=== PATIENT | male | born 1935 | race Caucasian/White ===

== ENCOUNTER 2020-01-19 12:54 | Inpatient (IN) ==
[2020-01-19 13:51] LABS: Basophils % 0.3 %; Eosinophils # 0.2 K/mcL (0.0-0.6); Eosinophils % 3.1 %; Hematocrit 29.8 % (37.5-50.1); Immature Granulocytes % 0.3 % (0-4); Lymphocytes # 0.6 K/mcL (0.6-4.6); Lymphocytes % 9.1 %; Mean Corpuscular HGB Conc 30.2 g/dL (31.6-35.5); Mean Corpuscular Hemoglobin 29.1 pg (28.0-33.3); Mean Corpuscular Volume 96.4 fL (83.0-100.0); Mean Platelet Volume 10.3 fL (9.4-12.4); Monocytes # 0.1 K/mcL (0.0-1.3); Monocytes % 1.8 %; Neutrophils # 5.2 K/mcL (1.6-8.9); Platelet Count 236 K/mcL (140-400); Red Blood Count 3.09 M/mcL (4.19-5.50); Segmented Neutrophils % 85.4 %; White Blood Count 6.1 K/mcL (4.3-11.1)
[2020-01-19 13:54] LABS: Bilirubin,Urine Negative (Negative); Blood,Urine Negative (Negative); Clarity,Urine Clear (Clear); Color,Urine Yellow (Yellow); Glucose,Urine (UA) Normal (Normal); Ketones,Urine Negative (Negative); Leukocyte Esterase,Urine Small (Negative); Nitrite,Urine Negative (Negative); Protein,Urine Trace mg/dL (Neg-Trace); Specific Gravity,Urine 1.018 (1.010-1.025); Urobilinogen,Urine Normal (Normal)
[2020-01-19 13:57] LABS: Bacteria,Urine None Seen per hpf (None-Few); Hyaline Casts,Urine None Seen per lpf (None-Few); RBC,Urine 0-3 per hpf (0-3); Squamous Epithelial Cell,Urine Many per lpf (None-Few)
[2020-01-19 13:58] LABS: INR 1.4; Prothrombin Time 15.7 Seconds (9.4-12.1)
[2020-01-19 14:01] LABS: Activated Partial Thrombo Time 28.3 Seconds (26.0-36.0)
[2020-01-19 15:26] LABS: Alanine Aminotransferase 40 Units/L (7-52); Albumin 3.2 g/dL (3.5-5.7); Albumin/Globulin Ratio 0.9 (1.1-2.2); Alkaline Phosphatase 85 Units/L (34-104); Aspartate Amino Transferase 39 Units/L (13-39); BUN/Creatinine Ratio 17 (6-26); Bilirubin,Direct 0.2 mg/dL (0.0-0.2); Bilirubin,Indirect 0.4 mg/dL (0.0-1.0); Bilirubin,Total 0.6 mg/dL (0.3-1.0); Blood Urea Nitrogen 24 mg/dL (8-23); Calcium 8.8 mg/dL (8.6-10.3); Carbon Dioxide 31 mEq/L (23-29); Chloride 105 mEq/L (98-107); Globulin 3.7 g/dL (2.4-3.5); Glucose 112 mg/dL (70-105); Lipase 36 Units/L (11-82); Osmolality,Calculated 295 (280-300); Potassium 4.2 mEq/L (3.5-5.1); Sodium 140 mEq/L (136-145); Total Protein 6.9 g/dL (6.4-8.9); Troponin I < 0.03 ng/mL (< 0.04); eGFR For African Americans 59 (> 60); eGFR For Non-African Americans 49 (> 60)
[2020-01-19] MEDS ORDERED: Isovue-370 500 ML BOTTLE IVP ONE (15:35)
[2020-01-19] MEDS ORDERED: Isovue-370 500 ML BOTTLE PO ONE (18:00)
[2020-01-19] MEDS ORDERED: Morphine Sulfate 2 MG/ML SYRINGE IVP ONE (18:46)
[2020-01-19] MEDS ORDERED: levoFLOXacin 750 MG/150 ML 750 MG/150 ML BAG IVPB SCH ×2 (19:30→20:00)
[2020-01-19] MEDS ORDERED: Ondansetron 4 MG/2 ML VIAL IVP PRN (19:48)
[2020-01-19] MEDS ORDERED: Naloxone 0.4 MG/ML INJ IVP PRN (19:49)
[2020-01-19] MEDS ORDERED: Ringers Solution, Lactated 1,000 ML IVC SCH (20:00)
[2020-01-19] MEDS: D5% in 0.45% NACL w KCl 20 MEQ/1,000 ML MLS IVC SCH (21:42)
[2020-01-19] MEDS: cilostazoL 100 MG TABLET PO SCH (21:45)
[2020-01-19] MEDS: Baclofen 10 MG TABLET PO SCH (21:45)
[2020-01-19] MEDS: Pregabalin 25 MG CAPSULE PO SCH (21:45)
[2020-01-19] MEDS: MetroNIDAZOLE 500 MG/100 ML 500 MG/100 ML BAG IVPB SCH (23:46)
[2020-01-20 05:14] LABS: Basophils % 0.4 %; Eosinophils # 0.2 K/mcL (0.0-0.6); Eosinophils % 3.6 %; Hematocrit 26.7 % (37.5-50.1); Hemoglobin 8.1 g/dL (12.9-16.9); Immature Granulocytes % 0.4 % (0-4); Lymphocytes # 0.7 K/mcL (0.6-4.6); Lymphocytes % 14.9 %; Mean Corpuscular HGB Conc 30.3 g/dL (31.6-35.5); Mean Corpuscular Volume 95.7 fL (83.0-100.0); Mean Platelet Volume 9.6 fL (9.4-12.4); Monocytes # 0.2 K/mcL (0.0-1.3); Neutrophils # 3.8 K/mcL (1.6-8.9); Platelet Count 208 K/mcL (140-400); Red Blood Count 2.79 M/mcL (4.19-5.50); Red Cell Distribution Width 18.7 % (11.5-14.5); Segmented Neutrophils % 76.7 %
[2020-01-20 05:21] LABS: INR 1.5; Prothrombin Time 16.7 Seconds (9.4-12.1)
[2020-01-20 05:36] LABS: BUN/Creatinine Ratio 16 (6-26); Blood Urea Nitrogen 20 mg/dL (8-23); Calcium 8.5 mg/dL (8.6-10.3); Carbon Dioxide 30 mEq/L (23-29); Chloride 102 mEq/L (98-107); Glucose 108 mg/dL (70-105); Magnesium 1.9 mg/dL (1.6-2.6); Osmolality,Calculated 285 (280-300); Potassium 4.1 mEq/L (3.5-5.1); Sodium 136 mEq/L (136-145); eGFR For African Americans > 60 (> 60); eGFR For Non-African Americans 55 (> 60)
[2020-01-20] MEDS: D5% in 0.45% NACL w KCl 20 MEQ/1,000 ML MLS IVC SCH (07:23)
[2020-01-20] MEDS: cilostazoL 100 MG TABLET PO SCH ×2 (08:12→20:14)
[2020-01-20] MEDS: Pregabalin 25 MG CAPSULE PO SCH ×2 (08:12→20:14)
[2020-01-20] MEDS: MetroNIDAZOLE 500 MG/100 ML 500 MG/100 ML BAG IVPB SCH ×2 (08:18→23:39)
[2020-01-20] MEDS: Baclofen 10 MG TABLET PO SCH ×2 (08:20→20:14)
[2020-01-20] MEDS ORDERED: lisinopriL 5 MG TABLET PO SCH (09:00)
[2020-01-20] MEDS ORDERED: DilTIAZem CD (24hr) 240 MG CAP.ER.24H PO SCH (09:00)
[2020-01-20] MEDS ORDERED: Bupivacaine/EPI 1:200k 0.5%PF 30 ML VIAL ONE (12:10)
[2020-01-20] MEDS ORDERED: *HR* Labetalol 20 MG/4 ML SYRINGE IVP PRN (13:37)
[2020-01-20] MEDS ORDERED: *HR* Promethazine 25 MG/ML VIAL IVP PRN (13:37)
[2020-01-20] MEDS ORDERED: Ondansetron 4 MG/2 ML VIAL IVP PRN ×2 (13:37→18:05)
[2020-01-20] MEDS ORDERED: Albumin Human 5% 12.5 GM/250 ML IV.SOLN ONE (13:55)
[2020-01-20] MEDS ORDERED: *HR* Propofol 200 MG/20 ML VIAL IVP ONE (14:18)
[2020-01-20] MEDS ORDERED: Dexamethasone 4 MG/ML VIAL ONE (14:18)
[2020-01-20] MEDS ORDERED: *HR* Rocuronium Bromide 50 MG/5 ML VIAL ONE (14:18)
[2020-01-20] MEDS ORDERED: Heparin 1,000 UNITS/500 mL 500 ML ONE (14:18)
[2020-01-20] MEDS ORDERED: Lidocaine -MPF 2% 2 ML VIAL ONE ×2 (14:18)
[2020-01-20] MEDS ORDERED: *HR* FentaNYL (PF) 100 MCG/2 ML VIAL ONE (14:18)
[2020-01-20] MEDS ORDERED: Ondansetron 4 MG/2 ML VIAL ONE (14:18)
[2020-01-20] MEDS ORDERED: *HR* Midazolam HCl 2 MG/2 ML VIAL ONE (14:18)
[2020-01-20] MEDS: *HR* HYDROmorphone (PF) 1 MG/ML SYRINGE IVP PRN ×8 (15:52→16:44)
[2020-01-20] MEDS ORDERED: Acetaminophen IV 1,000 MG/100 ML INFUS..BTL IVPB ONE (16:29)
[2020-01-20] MEDS ORDERED: Naloxone 0.4 MG/ML INJ IVP PRN (18:05)
[2020-01-20] MEDS: Acetaminophen IV 1,000 MG/100 ML INFUS..BTL IVPB SCH (23:39)
[2020-01-21 03:06] LABS: Basophils % 0.1 %; Hematocrit 30.3 % (37.5-50.1); Immature Granulocytes % 0.3 % (0-4); Lymphocytes # 0.5 K/mcL (0.6-4.6); Lymphocytes % 6.2 %; Mean Corpuscular HGB Conc 29.7 g/dL (31.6-35.5); Mean Corpuscular Hemoglobin 28.8 pg (28.0-33.3); Mean Corpuscular Volume 97.1 fL (83.0-100.0); Mean Platelet Volume 9.4 fL (9.4-12.4); Monocytes # 0.2 K/mcL (0.0-1.3); Monocytes % 2.5 %; Platelet Count 187 K/mcL (140-400); Red Blood Count 3.12 M/mcL (4.19-5.50); Red Cell Distribution Width 18.8 % (11.5-14.5); Segmented Neutrophils % 90.9 %
[2020-01-21 03:07] LABS: White Blood Count 7.7 K/mcL (4.3-11.1)
[2020-01-21 03:25] LABS: BUN/Creatinine Ratio 15 (6-26); Blood Urea Nitrogen 18 mg/dL (8-23); Calcium 8.4 mg/dL (8.6-10.3); Carbon Dioxide 27 mEq/L (23-29); Chloride 103 mEq/L (98-107); Glucose 139 mg/dL (70-105); Osmolality,Calculated 286 (280-300); Potassium 4.8 mEq/L (3.5-5.1); Sodium 136 mEq/L (136-145); eGFR For African Americans > 60 (> 60); eGFR For Non-African Americans 59 (> 60)
[2020-01-21] MEDS: Acetaminophen IV 1,000 MG/100 ML INFUS..BTL IVPB SCH ×2 (05:22→12:00)
[2020-01-21] MEDS: MetroNIDAZOLE 500 MG/100 ML 500 MG/100 ML BAG IVPB SCH ×2 (07:42→15:22)
[2020-01-21] MEDS: DilTIAZem CD (24hr) 240 MG CAP.ER.24H PO SCH (07:43)
[2020-01-21] MEDS: cilostazoL 100 MG TABLET PO SCH ×2 (07:43→20:36)
[2020-01-21] MEDS: Baclofen 10 MG TABLET PO SCH ×2 (07:43→20:35)
[2020-01-21] MEDS: Pregabalin 25 MG CAPSULE PO SCH ×2 (07:43→20:35)
[2020-01-21] MEDS: lisinopriL 5 MG TABLET PO SCH (07:44)
[2020-01-21] MEDS: Aspirin Enteric Coated 81 MG Tablet PO SCH (12:37)
[2020-01-21] MEDS ORDERED: levoFLOXacin 750 MG/150 ML 750 MG/150 ML BAG IVPB SCH (20:00)
[2020-01-21] MEDS: Apixaban 2.5 MG TABLET PO SCH (20:35)
[2020-01-21] MEDS: Furosemide 40 MG TABLET PO SCH (20:35)
[2020-01-22] MEDS: MetroNIDAZOLE 500 MG/100 ML 500 MG/100 ML BAG IVPB SCH (00:08)
[2020-01-22] MEDS: Methyl Salicylate/Menthol 57 APPL/57 GM TUBE TP PRN ×2 (05:45→17:21)
[2020-01-22] MEDS: lisinopriL 5 MG TABLET PO SCH (08:07)
[2020-01-22] MEDS: Aspirin Enteric Coated 81 MG Tablet PO SCH (08:10)
[2020-01-22] MEDS: DilTIAZem CD (24hr) 240 MG CAP.ER.24H PO SCH (08:10)
[2020-01-22] MEDS: Furosemide 40 MG TABLET PO SCH ×2 (08:11→21:31)
[2020-01-22] MEDS: Apixaban 2.5 MG TABLET PO SCH ×2 (08:12→21:32)
[2020-01-22] MEDS: Baclofen 10 MG TABLET PO SCH ×2 (08:14→21:31)
[2020-01-22] MEDS: cilostazoL 100 MG TABLET PO SCH ×2 (08:14→21:32)
[2020-01-22] MEDS: Pregabalin 25 MG CAPSULE PO SCH ×2 (08:17→21:31)
[2020-01-22] MEDS: metroNIDAZOLE 500 MG TABLET PO SCH ×3 (08:22→17:20)
[2020-01-22] MEDS ORDERED: Ringers Solution, Lactated 1,000 ML IVC SCH (10:45)
[2020-01-23 04:08] LABS: Basophils % 0.4 %; Eosinophils # 0.1 K/mcL (0.0-0.6); Eosinophils % 2.9 %; Hematocrit 32.2 % (37.5-50.1); Hemoglobin 9.5 g/dL (12.9-16.9); Immature Granulocytes % 0.4 % (0-4); Lymphocytes # 0.8 K/mcL (0.6-4.6); Lymphocytes % 17.6 %; Mean Corpuscular HGB Conc 29.5 g/dL (31.6-35.5); Mean Corpuscular Hemoglobin 28.4 pg (28.0-33.3); Mean Corpuscular Volume 96.1 fL (83.0-100.0); Mean Platelet Volume 9.8 fL (9.4-12.4); Monocytes # 0.5 K/mcL (0.0-1.3); Monocytes % 11.3 %; Neutrophils # 3.2 K/mcL (1.6-8.9); Platelet Count 196 K/mcL (140-400); Red Blood Count 3.35 M/mcL (4.19-5.50); Red Cell Distribution Width 19.8 % (11.5-14.5); Segmented Neutrophils % 67.4 %; White Blood Count 4.8 K/mcL (4.3-11.1)
[2020-01-23] MEDS: cilostazoL 100 MG TABLET PO SCH ×2 (08:18→22:20)
[2020-01-23] MEDS: DilTIAZem CD (24hr) 240 MG CAP.ER.24H PO SCH (08:18)
[2020-01-23] MEDS: Baclofen 10 MG TABLET PO SCH ×2 (08:19→22:20)
[2020-01-23] MEDS: lisinopriL 5 MG TABLET PO SCH (08:20)
[2020-01-23] MEDS: metroNIDAZOLE 500 MG TABLET PO SCH ×3 (08:22→17:27)
[2020-01-23] MEDS: Pregabalin 25 MG CAPSULE PO SCH ×2 (08:23→22:20)
[2020-01-23] MEDS: Aspirin Enteric Coated 81 MG Tablet PO SCH (08:24)
[2020-01-23] MEDS: Furosemide 40 MG TABLET PO SCH ×2 (08:24→22:19)
[2020-01-23] MEDS: Apixaban 2.5 MG TABLET PO SCH ×2 (08:25→22:19)
[2020-01-23] MEDS: levoFLOXacin 750 MG TABLET PO SCH (22:18)
[2020-01-24] MEDS ORDERED: Metoclopramide 20 MG in 0.9 % Sodium Chloride 50 ML IVPB SCH (09:00)
[2020-01-24] MEDS: Baclofen 10 MG TABLET PO SCH ×2 (09:08→20:00)
[2020-01-24] MEDS: DilTIAZem CD (24hr) 240 MG CAP.ER.24H PO SCH (09:08)
[2020-01-24] MEDS: metroNIDAZOLE 500 MG TABLET PO SCH ×3 (09:08→16:49)
[2020-01-24] MEDS: Metoclopramide 20 MG in 0.9 % Sodium Chloride 50 ML IVPB SCH ×2 (09:08→16:49)
[2020-01-24] MEDS: Pregabalin 25 MG CAPSULE PO SCH ×2 (09:08→20:00)
[2020-01-24] MEDS: Aspirin Enteric Coated 81 MG Tablet PO SCH (09:08)
[2020-01-24] MEDS: Apixaban 2.5 MG TABLET PO SCH ×2 (09:09→20:00)
[2020-01-24] MEDS: cilostazoL 100 MG TABLET PO SCH ×2 (09:09→20:00)
[2020-01-24] MEDS: lisinopriL 5 MG TABLET PO SCH (09:09)
[2020-01-25] MEDS: Metoclopramide 20 MG in 0.9 % Sodium Chloride 50 ML IVPB SCH ×2 (00:46→11:28)
[2020-01-25 05:10] LABS: Basophils % 0.4 %; Eosinophils # 0.1 K/mcL (0.0-0.6); Eosinophils % 1.6 %; Hematocrit 29.8 % (37.5-50.1); Hemoglobin 9.1 g/dL (12.9-16.9); Immature Granulocytes % 0.2 % (0-4); Lymphocytes # 0.9 K/mcL (0.6-4.6); Lymphocytes % 11.3 %; Mean Corpuscular HGB Conc 30.5 g/dL (31.6-35.5); Mean Corpuscular Volume 94.9 fL (83.0-100.0); Mean Platelet Volume 9.7 fL (9.4-12.4); Monocytes # 0.7 K/mcL (0.0-1.3); Monocytes % 8.7 %; Neutrophils # 6.4 K/mcL (1.6-8.9); Platelet Count 225 K/mcL (140-400); Red Blood Count 3.14 M/mcL (4.19-5.50); Red Cell Distribution Width 20.1 % (11.5-14.5); Segmented Neutrophils % 77.8 %
[2020-01-25 05:17] LABS: White Blood Count 8.2 K/mcL (4.3-11.1)
[2020-01-25 05:30] LABS: BUN/Creatinine Ratio 18 (6-26); Blood Urea Nitrogen 22 mg/dL (8-23); Calcium 8.8 mg/dL (8.6-10.3); Carbon Dioxide 28 mEq/L (23-29); Chloride 100 mEq/L (98-107); Glucose 92 mg/dL (70-105); Magnesium 1.7 mg/dL (1.6-2.6); Osmolality,Calculated 285 (280-300); Potassium 3.3 mEq/L (3.5-5.1); Sodium 136 mEq/L (136-145); eGFR For African Americans > 60 (> 60); eGFR For Non-African Americans 57 (> 60)
[2020-01-25] MEDS ORDERED: Methylnaltrexone 12 MG/0.6 ML SYRINGE SQ ONE (07:53)
[2020-01-25] MEDS: DilTIAZem CD (24hr) 240 MG CAP.ER.24H PO SCH (09:32)
[2020-01-25] MEDS: Apixaban 2.5 MG TABLET PO SCH ×2 (09:33→21:11)
[2020-01-25] MEDS: Aspirin Enteric Coated 81 MG Tablet PO SCH (09:34)
[2020-01-25] MEDS: metroNIDAZOLE 500 MG TABLET PO SCH ×3 (09:35→15:12)
[2020-01-25] MEDS: Pregabalin 25 MG CAPSULE PO SCH ×2 (09:35→21:11)
[2020-01-25] MEDS: cilostazoL 100 MG TABLET PO SCH ×2 (09:36→21:12)
[2020-01-25] MEDS: Baclofen 10 MG TABLET PO SCH ×2 (09:36→21:11)
[2020-01-25] MEDS: lisinopriL 5 MG TABLET PO SCH (09:36)
[2020-01-25] MEDS: levoFLOXacin 750 MG TABLET PO SCH (21:11)
[2020-01-26 04:36] LABS: Basophils % 0.4 %; Eosinophils # 0.3 K/mcL (0.0-0.6); Eosinophils % 3.3 %; Hematocrit 29.9 % (37.5-50.1); Hemoglobin 8.9 g/dL (12.9-16.9); Immature Granulocytes % 0.4 % (0-4); Lymphocytes # 1.1 K/mcL (0.6-4.6); Lymphocytes % 13.9 %; Mean Corpuscular HGB Conc 29.8 g/dL (31.6-35.5); Mean Corpuscular Hemoglobin 28.4 pg (28.0-33.3); Mean Corpuscular Volume 95.5 fL (83.0-100.0); Mean Platelet Volume 9.9 fL (9.4-12.4); Monocytes # 0.9 K/mcL (0.0-1.3); Monocytes % 11.8 %; Neutrophils # 5.3 K/mcL (1.6-8.9); Platelet Count 242 K/mcL (140-400); Red Blood Count 3.13 M/mcL (4.19-5.50); Red Cell Distribution Width 20.4 % (11.5-14.5); Segmented Neutrophils % 70.2 %; White Blood Count 7.6 K/mcL (4.3-11.1)
[2020-01-26 04:56] LABS: Calcium 8.1 mg/dL (8.6-10.3); Potassium 3.5 mEq/L (3.5-5.1)
[2020-01-26] MEDS ORDERED: 0.9 % Sodium Chloride 1,000 ML IVC SCH (07:45)
[2020-01-26] MEDS: polyethylene glycoL 3350 17 GM POWD.PACK PO SCH (08:42)
[2020-01-26] MEDS: Apixaban 2.5 MG TABLET PO SCH ×2 (08:43→20:24)
[2020-01-26] MEDS: DilTIAZem CD (24hr) 240 MG CAP.ER.24H PO SCH (08:45)
[2020-01-26] MEDS: Baclofen 10 MG TABLET PO SCH ×2 (08:45→20:24)
[2020-01-26] MEDS: cilostazoL 100 MG TABLET PO SCH ×2 (08:46→20:24)
[2020-01-26] MEDS: Pregabalin 25 MG CAPSULE PO SCH ×2 (08:46→20:24)
[2020-01-26] MEDS: Aspirin Enteric Coated 81 MG Tablet PO SCH (08:47)
[2020-01-26] MEDS ORDERED: 0.9 % Sodium Chloride 500 ML IVC ONE (11:47)
[2020-01-27 01:31] LABS: Basophils % 0.4 %; Eosinophils # 0.4 K/mcL (0.0-0.6); Eosinophils % 4.4 %; Hematocrit 27.8 % (37.5-50.1); Hemoglobin 8.5 g/dL (12.9-16.9); Immature Granulocytes % 0.1 % (0-4); Lymphocytes # 1.2 K/mcL (0.6-4.6); Lymphocytes % 14.4 %; Mean Corpuscular HGB Conc 30.6 g/dL (31.6-35.5); Mean Corpuscular Hemoglobin 29.5 pg (28.0-33.3); Mean Corpuscular Volume 96.5 fL (83.0-100.0); Mean Platelet Volume 9.8 fL (9.4-12.4); Monocytes # 0.8 K/mcL (0.0-1.3); Monocytes % 10.5 %; Neutrophils # 5.6 K/mcL (1.6-8.9); Platelet Count 223 K/mcL (140-400); Red Blood Count 2.88 M/mcL (4.19-5.50); Segmented Neutrophils % 70.2 %
[2020-01-27 01:48] LABS: Calcium 7.5 mg/dL (8.6-10.3); Magnesium 1.6 mg/dL (1.6-2.6); Potassium 3.5 mEq/L (3.5-5.1)
[2020-01-27] MEDS ORDERED: *HR* Metoprolol 5 MG/5 ML VIAL IVP PRN (07:32)
[2020-01-27] MEDS: polyethylene glycoL 3350 17 GM POWD.PACK PO SCH (09:31)
[2020-01-27] MEDS: Aspirin Enteric Coated 81 MG Tablet PO SCH (09:32)
[2020-01-27] MEDS: Pregabalin 25 MG CAPSULE PO SCH ×2 (09:32→20:10)
[2020-01-27] MEDS: Baclofen 10 MG TABLET PO SCH ×2 (09:33→20:10)
[2020-01-27] MEDS: cilostazoL 100 MG TABLET PO SCH ×2 (09:33→20:09)
[2020-01-27] MEDS: Apixaban 2.5 MG TABLET PO SCH ×2 (09:33→20:14)
[2020-01-27] MEDS: 0.9 % Sodium Chloride 1,000 ML IVC SCH (09:34)
[2020-01-28] MEDS: 0.9 % Sodium Chloride 1,000 ML IVC SCH (00:30)
[2020-01-28 02:39] LABS: Hematocrit 29.6 % (37.5-50.1); Mean Corpuscular HGB Conc 30.4 g/dL (31.6-35.5); Mean Corpuscular Hemoglobin 28.9 pg (28.0-33.3); Mean Corpuscular Volume 95.2 fL (83.0-100.0); Mean Platelet Volume 9.7 fL (9.4-12.4); Platelet Count 222 K/mcL (140-400); Red Blood Count 3.11 M/mcL (4.19-5.50); White Blood Count 7.8 K/mcL (4.3-11.1)
[2020-01-28 02:46] LABS: Calcium 7.7 mg/dL (8.6-10.3); Magnesium 1.7 mg/dL (1.6-2.6); Phosphorous 2.3 mg/dL (2.7-4.5); Potassium 3.5 mEq/L (3.5-5.1); Uric Acid 9.7 mg/dL (2.3-7.6)
[2020-01-28] MEDS: Pregabalin 25 MG CAPSULE PO SCH (09:28)
[2020-01-28] MEDS: Apixaban 2.5 MG TABLET PO SCH (09:29)
[2020-01-28] MEDS: Baclofen 10 MG TABLET PO SCH (09:29)
[2020-01-28] MEDS: polyethylene glycoL 3350 17 GM POWD.PACK PO SCH (09:29)
[2020-01-28] MEDS: cilostazoL 100 MG TABLET PO SCH (09:29)
[2020-01-28] MEDS: Aspirin Enteric Coated 81 MG Tablet PO SCH (09:29)
[2020-01-28 10:54] VITALS: BP 131/75
[2020-01-28 12:45] LABS: BUN/Creatinine Ratio 22 (6-26); Blood Urea Nitrogen 30 mg/dL (8-23); Calcium 7.7 mg/dL (8.6-10.3); Carbon Dioxide 27 mEq/L (23-29); Chloride 109 mEq/L (98-107); Glucose 104 mg/dL (70-105); Osmolality,Calculated 294 (280-300); Potassium 3.4 mEq/L (3.5-5.1); Sodium 139 mEq/L (136-145); eGFR For African Americans > 60 (> 60); eGFR For Non-African Americans 50 (> 60)
== END 2020-01-28 12:57 | disposition home health service (06) | DRG 341 ==
LOC: 3ANU 12:54 → EMEROOARM 12:54 → SUATTDRO 19:46 → 3ANU 20:37 → SUATTDRO 01-20 12:59
PROVIDERS: ADMIT Family Medicine; ATTEND Internal Medicine

== ENCOUNTER 2020-10-23 19:27 | Inpatient (IN) ==
[2020-10-23] MEDS ORDERED: Naloxone 0.4 MG/ML INJ IVP PRN (21:15)
[2020-10-23] MEDS ORDERED: Perflutren Lipid Microsphere 1.3 ML in 0.9 % Sodium Chloride 8.7 ML IVP PRN (21:47)
[2020-10-24] MEDS ORDERED: Acetaminophen 325 MG TABLET PO ONE (06:44)
[2020-10-24 08:17] LABS: Basophils % 0.6 %; Eosinophils # 0.1 K/mcL (0.0-0.6); Eosinophils % 1.3 %; Hematocrit 32.5 % (37.5-50.1); Immature Granulocytes % 0.5 % (0-4); Lymphocytes # 0.5 K/mcL (0.6-4.6); Lymphocytes % 7.5 %; Mean Corpuscular HGB Conc 30.8 g/dL (31.6-35.5); Mean Corpuscular Hemoglobin 31.2 pg (28.0-33.3); Mean Corpuscular Volume 101.2 fL (83.0-100.0); Mean Platelet Volume 10.1 fL (9.4-12.4); Monocytes # 0.4 K/mcL (0.0-1.3); Monocytes % 5.7 %; Neutrophils # 5.2 K/mcL (1.6-8.9); Platelet Count 165 K/mcL (140-400); Red Blood Count 3.21 M/mcL (4.19-5.50); Red Cell Distribution Width 16.6 % (11.5-14.5); Segmented Neutrophils % 84.4 %; White Blood Count 6.2 K/mcL (4.3-11.1)
[2020-10-24 08:37] LABS: BUN/Creatinine Ratio 18 (6-26); Blood Urea Nitrogen 20 mg/dL (8-23); Calcium 8.9 mg/dL (8.6-10.3); Carbon Dioxide 30 mEq/L (23-29); Chloride 102 mEq/L (98-107); Glucose 99 mg/dL (70-105); Osmolality,Calculated 291 (280-300); Potassium 3.6 mEq/L (3.5-5.1); Sodium 139 mEq/L (136-145); eGFR For African Americans > 60 (> 60); eGFR For Non-African Americans > 60 (> 60)
[2020-10-24] MEDS ORDERED: Furosemide 40 MG/4 ML VIAL IVP SCH (09:00)
[2020-10-24] MEDS: *HR* HYDROcodone/Acet 5/325 mg TABLET PO PRN ×2 (11:29→20:08)
[2020-10-24] MEDS: Multivit/Ca/Min/Fe/FA 1 TAB TABLET PO SCH (17:02)
[2020-10-24] MEDS: Furosemide 40 MG/4 ML VIAL IVP SCH (20:06)
[2020-10-24] MEDS: cilostazoL 100 MG TABLET PO SCH (20:07)
[2020-10-24] MEDS: Baclofen 10 MG TABLET PO SCH (20:08)
[2020-10-24] MEDS: Apixaban 2.5 MG TABLET PO SCH (20:08)
[2020-10-24] MEDS: Pregabalin 25 MG CAPSULE PO SCH (20:09)
[2020-10-25] MEDS: Furosemide 40 MG/4 ML VIAL IVP SCH ×2 (08:01→20:08)
[2020-10-25] MEDS: Folic Acid 1 MG TABLET PO SCH (08:02)
[2020-10-25] MEDS: *HR* HYDROcodone/Acet 5/325 mg TABLET PO PRN ×2 (08:02→20:09)
[2020-10-25] MEDS: lisinopriL 5 MG TABLET PO SCH (08:02)
[2020-10-25] MEDS: cilostazoL 100 MG TABLET PO SCH ×2 (08:02→20:09)
[2020-10-25] MEDS: Baclofen 10 MG TABLET PO SCH ×2 (08:02→20:09)
[2020-10-25] MEDS: Aspirin Enteric Coated 81 MG Tablet PO SCH (08:02)
[2020-10-25] MEDS: Apixaban 2.5 MG TABLET PO SCH ×2 (08:02→20:09)
[2020-10-25] MEDS: DilTIAZem CD (24hr) 240 MG CAP.ER.24H PO SCH (08:02)
[2020-10-25] MEDS: Pregabalin 25 MG CAPSULE PO SCH ×2 (08:03→20:09)
[2020-10-25 08:54] LABS: Basophils % 0.4 %; Eosinophils # 0.1 K/mcL (0.0-0.6); Eosinophils % 1.4 %; Hematocrit 33.4 % (37.5-50.1); Hemoglobin 10.3 g/dL (12.9-16.9); Immature Granulocytes % 0.4 % (0-4); Lymphocytes # 0.6 K/mcL (0.6-4.6); Mean Corpuscular HGB Conc 30.8 g/dL (31.6-35.5); Mean Corpuscular Hemoglobin 30.9 pg (28.0-33.3); Mean Corpuscular Volume 100.3 fL (83.0-100.0); Mean Platelet Volume 9.6 fL (9.4-12.4); Monocytes # 0.4 K/mcL (0.0-1.3); Monocytes % 4.8 %; Platelet Count 179 K/mcL (140-400); Red Blood Count 3.33 M/mcL (4.19-5.50); Red Cell Distribution Width 16.3 % (11.5-14.5); White Blood Count 8.1 K/mcL (4.3-11.1)
[2020-10-25 09:16] LABS: Blood Urea Nitrogen > 130 mg/dL (8-23); Calcium 8.9 mg/dL (8.6-10.3); Carbon Dioxide 31 mEq/L (23-29); Chloride 99 mEq/L (98-107); Glucose 95 mg/dL (70-105); Magnesium 1.8 mg/dL (1.6-2.6); Potassium 3.8 mEq/L (3.5-5.1); Sodium 138 mEq/L (136-145); eGFR For African Americans > 60 (> 60); eGFR For Non-African Americans > 60 (> 60)
[2020-10-25] MEDS: Multivit/Ca/Min/Fe/FA 1 TAB TABLET PO SCH (17:21)
[2020-10-26 05:40] LABS: Basophils % 0.4 %; Eosinophils # 0.2 K/mcL (0.0-0.6); Eosinophils % 2.8 %; Hematocrit 31.3 % (37.5-50.1); Hemoglobin 9.6 g/dL (12.9-16.9); Immature Granulocytes % 0.4 % (0-4); Lymphocytes # 0.6 K/mcL (0.6-4.6); Lymphocytes % 7.6 %; Mean Corpuscular HGB Conc 30.7 g/dL (31.6-35.5); Mean Corpuscular Hemoglobin 30.7 pg (28.0-33.3); Mean Platelet Volume 9.9 fL (9.4-12.4); Monocytes # 0.5 K/mcL (0.0-1.3); Monocytes % 6.9 %; Neutrophils # 6.1 K/mcL (1.6-8.9); Platelet Count 190 K/mcL (140-400); Red Blood Count 3.13 M/mcL (4.19-5.50); Red Cell Distribution Width 16.5 % (11.5-14.5); Segmented Neutrophils % 81.9 %; White Blood Count 7.4 K/mcL (4.3-11.1)
[2020-10-26 05:57] LABS: BUN/Creatinine Ratio 21 (6-26); Blood Urea Nitrogen 23 mg/dL (8-23); Calcium 8.5 mg/dL (8.6-10.3); Carbon Dioxide 33 mEq/L (23-29); Chloride 100 mEq/L (98-107); Glucose 104 mg/dL (70-105); Magnesium 1.8 mg/dL (1.6-2.6); Osmolality,Calculated 290 (280-300); Potassium 3.6 mEq/L (3.5-5.1); Sodium 138 mEq/L (136-145); eGFR For African Americans > 60 (> 60); eGFR For Non-African Americans > 60 (> 60)
[2020-10-26] MEDS: DilTIAZem CD (24hr) 240 MG CAP.ER.24H PO SCH (07:59)
[2020-10-26] MEDS: cilostazoL 100 MG TABLET PO SCH (07:59)
[2020-10-26] MEDS: Furosemide 40 MG/4 ML VIAL IVP SCH (08:00)
[2020-10-26] MEDS: Baclofen 10 MG TABLET PO SCH (08:00)
[2020-10-26] MEDS: lisinopriL 5 MG TABLET PO SCH (08:00)
[2020-10-26] MEDS: Aspirin Enteric Coated 81 MG Tablet PO SCH (08:00)
[2020-10-26] MEDS: Apixaban 2.5 MG TABLET PO SCH (08:00)
[2020-10-26] MEDS: Folic Acid 1 MG TABLET PO SCH (08:00)
[2020-10-26] MEDS: Pregabalin 25 MG CAPSULE PO SCH (08:00)
[2020-10-26 08:13] VITALS: BP 154/72
== END 2020-10-26 11:29 | disposition home or self-care (01) | DRG 291 ==
LOC: 3ANU 19:27 → EMEROOARM 19:27 → SUATTDRO 21:11 → 3ANU 21:41
PROVIDERS: ADMIT Internal Medicine; ATTEND Internal Medicine

== ENCOUNTER 2021-01-30 16:09 | Inpatient (IN) ==
[2021-01-30] MEDS ORDERED: Ondansetron 4 MG/2 ML VIAL IVP PRN (18:57)
[2021-01-30] MEDS ORDERED: Acetaminophen 325 MG TABLET PO PRN (18:57)
[2021-01-30] MEDS ORDERED: Melatonin 3 MG TABLET PO PRN (18:57)
[2021-01-30] MEDS ORDERED: Naloxone 0.4 MG/ML INJ IVP PRN (18:57)
[2021-01-30] MEDS: Furosemide 40 MG/4 ML VIAL IVP SCH (20:32)
[2021-01-31 03:39] LABS: Basophils % 0.4 %; Eosinophils % 0.7 %; Hematocrit 29.2 % (37.5-50.1); Hemoglobin 8.7 g/dL (12.9-16.9); Immature Granulocytes % 0.2 % (0-4); Lymphocytes # 0.3 K/mcL (0.6-4.6); Lymphocytes % 5.2 %; Mean Corpuscular HGB Conc 29.8 g/dL (31.6-35.5); Mean Corpuscular Hemoglobin 31.8 pg (28.0-33.3); Mean Corpuscular Volume 106.6 fL (83.0-100.0); Mean Platelet Volume 10.1 fL (9.4-12.4); Monocytes # 0.2 K/mcL (0.0-1.3); Neutrophils # 4.8 K/mcL (1.6-8.9); Platelet Count 145 K/mcL (140-400); Red Blood Count 2.74 M/mcL (4.19-5.50); Red Cell Distribution Width 18.1 % (11.5-14.5); Segmented Neutrophils % 90.5 %; White Blood Count 5.4 K/mcL (4.3-11.1)
[2021-01-31 03:59] LABS: Albumin 3.6 g/dL (3.5-5.7); Albumin/Globulin Ratio 1.1 (1.1-2.2); Bilirubin,Total 1.2 mg/dL (0.3-1.0); Calcium 9.1 mg/dL (8.6-10.3); Globulin 3.3 g/dL (2.4-3.5); Potassium 3.5 mEq/L (3.5-5.1); Total Protein 6.9 g/dL (6.4-8.9)
[2021-01-31] MEDS: Furosemide 40 MG/4 ML VIAL IVP SCH ×2 (08:17→18:21)
[2021-01-31] MEDS: DilTIAZem CD (24hr) 240 MG CAP.ER.24H PO SCH (13:16)
[2021-01-31] MEDS: *HR* HYDROcodone/Acet 5/325 mg TABLET PO SCH ×2 (13:32→21:15)
[2021-01-31] MEDS ORDERED: Albumin 25% 25gram/100mL 25 GM/100 ML IV.SOLN IVPB SCH (16:00)
[2021-01-31] MEDS: Multivit/Ca/Min/Fe/FA 1 TAB TABLET PO SCH (16:48)
[2021-01-31] MEDS: Albumin 25% 25gram/100mL 25 GM/100 ML IV.SOLN IVPB SCH (16:48)
[2021-01-31] MEDS: Pregabalin 25 MG CAPSULE PO SCH (20:13)
[2021-01-31] MEDS: Apixaban 2.5 MG TABLET PO SCH (20:13)
[2021-01-31] MEDS: Aspirin Enteric Coated 81 MG Tablet PO SCH (20:14)
[2021-01-31] MEDS ORDERED: cilostazoL 100 MG TABLET PO SCH (21:00)
[2021-02-01 01:51] LABS: Hematocrit 27.1 % (37.5-50.1); Hemoglobin 8.4 g/dL (12.9-16.9); Mean Corpuscular Hemoglobin 31.7 pg (28.0-33.3); Mean Corpuscular Volume 102.3 fL (83.0-100.0); Mean Platelet Volume 9.6 fL (9.4-12.4); Platelet Count 137 K/mcL (140-400); Red Blood Count 2.65 M/mcL (4.19-5.50); Red Cell Distribution Width 17.9 % (11.5-14.5); White Blood Count 4.9 K/mcL (4.3-11.1)
[2021-02-01 02:14] LABS: % Iron Saturation 12 % (20-55); BUN/Creatinine Ratio 18 (6-26); Blood Urea Nitrogen 21 mg/dL (8-23); Carbon Dioxide 35 mEq/L (23-29); Chloride 99 mEq/L (98-107); Glucose 104 mg/dL (70-105); Iron 29 mcg/dL (65-175); Osmolality,Calculated 295 (280-300); Phosphorous 2.9 mg/dL (2.7-4.5); Potassium 3.3 mEq/L (3.5-5.1); Sodium 141 mEq/L (136-145); Transferrin 180 mg/dL (203-362); eGFR For African Americans > 60 (> 60); eGFR For Non-African Americans 59 (> 60)
[2021-02-01 02:31] LABS: Ferritin 360 ng/mL (20-250)
[2021-02-01 02:37] LABS: Folate 14.7 ng/mL (3.0-16.0)
[2021-02-01] MEDS: *HR* HYDROcodone/Acet 5/325 mg TABLET PO SCH ×3 (05:20→22:37)
[2021-02-01] MEDS ORDERED: Iron Sucrose Complex 400 MG in 0.9 % Sodium Chloride 250 ML IVPB ONE (07:35)
[2021-02-01] MEDS ORDERED: Nitroglycerin 0.4 MG TAB.SUBL SL PRN (07:44)
[2021-02-01] MEDS: Albumin 25% 25gram/100mL 25 GM/100 ML IV.SOLN IVPB SCH ×2 (08:32→17:17)
[2021-02-01] MEDS: Folic Acid 1 MG TABLET PO SCH (08:39)
[2021-02-01] MEDS: Apixaban 2.5 MG TABLET PO SCH ×2 (08:39→20:27)
[2021-02-01] MEDS: DilTIAZem CD (24hr) 240 MG CAP.ER.24H PO SCH (08:39)
[2021-02-01] MEDS: Pregabalin 25 MG CAPSULE PO SCH ×2 (08:40→20:27)
[2021-02-01] MEDS ORDERED: lisinopriL 5 MG TABLET PO SCH (09:00)
[2021-02-01] MEDS ORDERED: lisinopriL 10 MG TABLET PO SCH (09:00)
[2021-02-01] MEDS ORDERED: lisinopriL 5 MG TABLET PO ONE (09:14)
[2021-02-01] MEDS: Furosemide 40 MG/4 ML VIAL IVP SCH ×2 (10:51→20:27)
[2021-02-01 16:33] LABS: Adenovirus Not Detected (Not Detect); Bordetella Pertussis Not Detected (Not Detect); Chlamydophila pneumoniae Not Detected (Not Detect); Coronavirus 229E Not Detected (Not Detect); Coronavirus HKU1 Not Detected (Not Detect); Coronavirus NL63 Not Detected (Not Detect); Coronavirus OC43 Not Detected (Not Detect); Human Metapneumovirus Not Detected (Not Detect); Human Rhinovirus/Enterovirus Not Detected (Not Detect); Influenza A Subtype 2009 H1 Not Detected (Not Detect); Influenza B Not Detected (Not Detect); Mycoplasma pneumoniae Not Detected (Not Detect); Parainfluenza Virus 1 Not Detected (Not Detect); Parainfluenza Virus 2 Not Detected (Not Detect); Parainfluenza Virus 3 Not Detected (Not Detect); Parainfluenza Virus 4 Not Detected (Not Detect); Respiratory Syncytial Virus Not Detected (Not Detect); SARS-CoV-2 Not Detected (Not Detect)
[2021-02-01] MEDS: Multivit/Ca/Min/Fe/FA 1 TAB TABLET PO SCH (17:17)
[2021-02-01] MEDS: Aspirin Enteric Coated 81 MG Tablet PO SCH (20:27)
[2021-02-01] MEDS ORDERED: Furosemide 40 MG/4 ML VIAL IVP SCH (20:30)
[2021-02-02] MEDS: Albumin 25% 25gram/100mL 25 GM/100 ML IV.SOLN IVPB SCH ×2 (05:34→17:13)
[2021-02-02] MEDS: *HR* HYDROcodone/Acet 5/325 mg TABLET PO SCH ×2 (05:34→12:46)
[2021-02-02 06:42] LABS: Hematocrit 30.2 % (37.5-50.1); Hemoglobin 9.1 g/dL (12.9-16.9); Mean Corpuscular HGB Conc 30.1 g/dL (31.6-35.5); Mean Corpuscular Hemoglobin 31.5 pg (28.0-33.3); Mean Corpuscular Volume 104.5 fL (83.0-100.0); Mean Platelet Volume 10.2 fL (9.4-12.4); Platelet Count 144 K/mcL (140-400); Red Blood Count 2.89 M/mcL (4.19-5.50); Red Cell Distribution Width 17.9 % (11.5-14.5); White Blood Count 6.6 K/mcL (4.3-11.1)
[2021-02-02 07:12] LABS: BUN/Creatinine Ratio 17 (6-26); Blood Urea Nitrogen 21 mg/dL (8-23); Calcium 9.5 mg/dL (8.6-10.3); Carbon Dioxide 36 mEq/L (23-29); Chloride 98 mEq/L (98-107); Glucose 106 mg/dL (70-105); Magnesium 2.1 mg/dL (1.6-2.6); Osmolality,Calculated 295 (280-300); Phosphorous 3.3 mg/dL (2.7-4.5); Potassium 3.6 mEq/L (3.5-5.1); Sodium 141 mEq/L (136-145); eGFR For African Americans > 60 (> 60); eGFR For Non-African Americans 54 (> 60)
[2021-02-02] MEDS ORDERED: methylPREDNISolone 125 MG/2 ML VIAL IVP ONE (08:15)
[2021-02-02] MEDS: DilTIAZem CD (24hr) 240 MG CAP.ER.24H PO SCH (09:21)
[2021-02-02] MEDS: Apixaban 2.5 MG TABLET PO SCH ×2 (09:21→20:33)
[2021-02-02] MEDS: Folic Acid 1 MG TABLET PO SCH (09:21)
[2021-02-02] MEDS: levoFLOXacin 750 MG TABLET PO SCH (09:22)
[2021-02-02] MEDS: lisinopriL 10 MG TABLET PO SCH (09:22)
[2021-02-02] MEDS: Pregabalin 25 MG CAPSULE PO SCH ×2 (09:22→20:33)
[2021-02-02] MEDS: Ipratropium/Albuterol Neb 3 ML IH SCH ×5 (09:37→23:17)
[2021-02-02] MEDS: Furosemide 40 MG/4 ML VIAL IVP SCH ×2 (10:40→20:34)
[2021-02-02] MEDS: Budesonide/Formoterol 160/4.5 1 PUFF INH IH SCH ×2 (11:52→20:00)
[2021-02-02] MEDS ORDERED: Ipratropium/Albuterol Neb 3 ML IH SCH (12:00)
[2021-02-02] MEDS: Multivit/Ca/Min/Fe/FA 1 TAB TABLET PO SCH (17:13)
[2021-02-02] MEDS: Aspirin Enteric Coated 81 MG Tablet PO SCH (20:33)
[2021-02-03] MEDS: Ipratropium/Albuterol Neb 3 ML IH SCH ×6 (03:46→23:02)
[2021-02-03 04:04] LABS: Hematocrit 26.6 % (37.5-50.1); Mean Corpuscular HGB Conc 30.1 g/dL (31.6-35.5); Mean Corpuscular Hemoglobin 31.9 pg (28.0-33.3); Mean Platelet Volume 9.9 fL (9.4-12.4); Platelet Count 114 K/mcL (140-400); Red Blood Count 2.51 M/mcL (4.19-5.50); Red Cell Distribution Width 17.8 % (11.5-14.5); White Blood Count 5.1 K/mcL (4.3-11.1)
[2021-02-03 04:23] LABS: Calcium 9.5 mg/dL (8.6-10.3); Magnesium 2.2 mg/dL (1.6-2.6); Phosphorous 3.8 mg/dL (2.7-4.5); Potassium 3.9 mEq/L (3.5-5.1)
[2021-02-03] MEDS: Albumin 25% 25gram/100mL 25 GM/100 ML IV.SOLN IVPB SCH ×2 (05:43→16:44)
[2021-02-03] MEDS: Budesonide/Formoterol 160/4.5 1 PUFF INH IH SCH ×2 (07:17→19:24)
[2021-02-03] MEDS: Furosemide 40 MG/4 ML VIAL IVP SCH ×2 (08:04→20:42)
[2021-02-03] MEDS: lisinopriL 10 MG TABLET PO SCH (08:04)
[2021-02-03] MEDS: DilTIAZem CD (24hr) 240 MG CAP.ER.24H PO SCH (08:04)
[2021-02-03] MEDS: Pregabalin 25 MG CAPSULE PO SCH ×2 (08:05→20:43)
[2021-02-03] MEDS: Apixaban 2.5 MG TABLET PO SCH ×2 (08:05→20:43)
[2021-02-03] MEDS: Folic Acid 1 MG TABLET PO SCH (08:05)
[2021-02-03] MEDS: levoFLOXacin 750 MG TABLET PO SCH (08:05)
[2021-02-03] MEDS ORDERED: predniSONE 20 MG TABLET PO SCH (09:00)
[2021-02-03] MEDS ORDERED: Saline Nasal Spray 44 ML BOTTLE NS PRN (16:26)
[2021-02-03] MEDS: Multivit/Ca/Min/Fe/FA 1 TAB TABLET PO SCH (16:44)
[2021-02-03] MEDS ORDERED: Ipratropium/Albuterol Neb 3 ML IH PRN (17:24)
[2021-02-03] MEDS: MethylPREDNISolone 40 MG/ML VIAL IVP SCH ×2 (18:16→23:36)
[2021-02-03] MEDS: Aspirin Enteric Coated 81 MG Tablet PO SCH (20:43)
[2021-02-04] MEDS ORDERED: *HR* LORazepam 2 MG/ML VIAL IVP ONE (01:31)
[2021-02-04] MEDS: Ipratropium/Albuterol Neb 3 ML IH SCH ×6 (03:19→23:13)
[2021-02-04 03:31] LABS: Hematocrit 27.4 % (37.5-50.1); Hemoglobin 8.1 g/dL (12.9-16.9); Immature Granulocytes % 0.4 % (0-4); Lymphocytes # 0.2 K/mcL (0.6-4.6); Lymphocytes % 4.3 %; Mean Corpuscular HGB Conc 29.6 g/dL (31.6-35.5); Mean Corpuscular Hemoglobin 31.8 pg (28.0-33.3); Mean Corpuscular Volume 107.5 fL (83.0-100.0); Mean Platelet Volume 10.3 fL (9.4-12.4); Monocytes # 0.1 K/mcL (0.0-1.3); Monocytes % 2.2 %; Neutrophils # 4.6 K/mcL (1.6-8.9); Nucleated Red Blood Cells 0.6 /100 WBC (0); Platelet Count 113 K/mcL (140-400); Red Blood Count 2.55 M/mcL (4.19-5.50); Red Cell Distribution Width 18.5 % (11.5-14.5); Segmented Neutrophils % 93.1 %; White Blood Count 4.9 K/mcL (4.3-11.1)
[2021-02-04 03:44] LABS: Calcium 9.5 mg/dL (8.6-10.3); Magnesium 2.4 mg/dL (1.6-2.6); Phosphorous 3.8 mg/dL (2.7-4.5); Potassium 3.6 mEq/L (3.5-5.1)
[2021-02-04] MEDS: Albumin 25% 25gram/100mL 25 GM/100 ML IV.SOLN IVPB SCH ×2 (05:48→17:56)
[2021-02-04] MEDS: Budesonide/Formoterol 160/4.5 1 PUFF INH IH SCH ×2 (07:28→19:56)
[2021-02-04] MEDS: Pregabalin 25 MG CAPSULE PO SCH ×2 (07:51→20:38)
[2021-02-04] MEDS: Apixaban 2.5 MG TABLET PO SCH ×2 (07:51→20:38)
[2021-02-04] MEDS: DilTIAZem CD (24hr) 240 MG CAP.ER.24H PO SCH (07:51)
[2021-02-04] MEDS: levoFLOXacin 750 MG TABLET PO SCH (07:51)
[2021-02-04] MEDS: lisinopriL 10 MG TABLET PO SCH (07:51)
[2021-02-04] MEDS: Folic Acid 1 MG TABLET PO SCH (07:51)
[2021-02-04] MEDS: Furosemide 40 MG/4 ML VIAL IVP SCH (07:53)
[2021-02-04] MEDS: MethylPREDNISolone 40 MG/ML VIAL IVP SCH ×3 (07:53→23:25)
[2021-02-04] MEDS: Multivit/Ca/Min/Fe/FA 1 TAB TABLET PO SCH (17:56)
[2021-02-04] MEDS: Aspirin Enteric Coated 81 MG Tablet PO SCH (20:38)
[2021-02-05 03:22] LABS: Hematocrit 26.9 % (37.5-50.1); Hemoglobin 7.9 g/dL (12.9-16.9); Immature Granulocytes % 0.7 % (0-4); Lymphocytes # 0.2 K/mcL (0.6-4.6); Mean Corpuscular HGB Conc 29.4 g/dL (31.6-35.5); Mean Corpuscular Hemoglobin 31.6 pg (28.0-33.3); Mean Corpuscular Volume 107.6 fL (83.0-100.0); Mean Platelet Volume 10.7 fL (9.4-12.4); Monocytes # 0.2 K/mcL (0.0-1.3); Monocytes % 2.8 %; Neutrophils # 6.9 K/mcL (1.6-8.9); Nucleated Red Blood Cells 0.4 /100 WBC (0); Platelet Count 132 K/mcL (140-400); Red Cell Distribution Width 18.7 % (11.5-14.5); Segmented Neutrophils % 93.5 %; White Blood Count 7.4 K/mcL (4.3-11.1)
[2021-02-05 03:39] LABS: Calcium 9.8 mg/dL (8.6-10.3); Magnesium 2.5 mg/dL (1.6-2.6); Phosphorous 3.7 mg/dL (2.7-4.5); Potassium 3.4 mEq/L (3.5-5.1)
[2021-02-05] MEDS: Ipratropium/Albuterol Neb 3 ML IH SCH ×7 (03:41→23:56)
[2021-02-05] MEDS: Albumin 25% 25gram/100mL 25 GM/100 ML IV.SOLN IVPB SCH ×2 (05:19→16:24)
[2021-02-05] MEDS: Budesonide/Formoterol 160/4.5 1 PUFF INH IH SCH ×2 (08:08→19:46)
[2021-02-05] MEDS: Folic Acid 1 MG TABLET PO SCH (08:57)
[2021-02-05] MEDS: Pregabalin 25 MG CAPSULE PO SCH ×2 (08:57→21:02)
[2021-02-05] MEDS: MethylPREDNISolone 40 MG/ML VIAL IVP SCH ×2 (08:57→16:24)
[2021-02-05] MEDS: lisinopriL 10 MG TABLET PO SCH (08:57)
[2021-02-05] MEDS: Apixaban 2.5 MG TABLET PO SCH ×2 (08:57→21:02)
[2021-02-05] MEDS: DilTIAZem CD (24hr) 240 MG CAP.ER.24H PO SCH (08:57)
[2021-02-05] MEDS: levoFLOXacin 750 MG TABLET PO SCH (08:57)
[2021-02-05] MEDS: Multivit/Ca/Min/Fe/FA 1 TAB TABLET PO SCH (16:24)
[2021-02-05] MEDS: Aspirin Enteric Coated 81 MG Tablet PO SCH (21:02)
[2021-02-06] MEDS: MethylPREDNISolone 40 MG/ML VIAL IVP SCH ×3 (00:57→16:45)
[2021-02-06 04:25] LABS: Hematocrit 28.2 % (37.5-50.1); Hemoglobin 8.3 g/dL (12.9-16.9); Immature Granulocytes % 0.7 % (0-4); Lymphocytes # 0.2 K/mcL (0.6-4.6); Lymphocytes % 2.6 %; Mean Corpuscular HGB Conc 29.4 g/dL (31.6-35.5); Mean Corpuscular Hemoglobin 31.8 pg (28.0-33.3); Mean Platelet Volume 10.7 fL (9.4-12.4); Monocytes # 0.3 K/mcL (0.0-1.3); Neutrophils # 7.9 K/mcL (1.6-8.9); Platelet Count 153 K/mcL (140-400); Red Blood Count 2.61 M/mcL (4.19-5.50); Red Cell Distribution Width 18.9 % (11.5-14.5); Segmented Neutrophils % 93.7 %; White Blood Count 8.4 K/mcL (4.3-11.1)
[2021-02-06 04:43] LABS: Calcium 9.6 mg/dL (8.6-10.3); Magnesium 2.6 mg/dL (1.6-2.6); Phosphorous 3.6 mg/dL (2.7-4.5); Potassium 3.3 mEq/L (3.5-5.1)
[2021-02-06] MEDS: Ipratropium/Albuterol Neb 3 ML IH SCH ×6 (06:00→23:22)
[2021-02-06] MEDS: Albumin 25% 25gram/100mL 25 GM/100 ML IV.SOLN IVPB SCH (06:42)
[2021-02-06] MEDS: Budesonide/Formoterol 160/4.5 1 PUFF INH IH SCH ×2 (07:29→19:24)
[2021-02-06] MEDS: Apixaban 2.5 MG TABLET PO SCH ×2 (11:05→22:06)
[2021-02-06] MEDS: Folic Acid 1 MG TABLET PO SCH (11:05)
[2021-02-06] MEDS: DilTIAZem CD (24hr) 240 MG CAP.ER.24H PO SCH (11:05)
[2021-02-06] MEDS: Pregabalin 25 MG CAPSULE PO SCH ×2 (11:05→22:06)
[2021-02-06] MEDS: *HR* OxyCODONE Immed Rel 5 MG TABLET PO PRN ×3 (11:23→22:12)
[2021-02-06] MEDS: Multivit/Ca/Min/Fe/FA 1 TAB TABLET PO SCH (16:45)
[2021-02-06] MEDS: Aspirin Enteric Coated 81 MG Tablet PO SCH (22:06)
[2021-02-07] MEDS: MethylPREDNISolone 40 MG/ML VIAL IVP SCH ×3 (00:07→16:47)
[2021-02-07] MEDS: Ipratropium/Albuterol Neb 3 ML IH SCH ×5 (03:49→19:33)
[2021-02-07] MEDS: Budesonide/Formoterol 160/4.5 1 PUFF INH IH SCH (07:22)
[2021-02-07 08:12] LABS: Hemoglobin 8.2 g/dL (12.9-16.9); Mean Corpuscular HGB Conc 29.3 g/dL (31.6-35.5); Mean Corpuscular Hemoglobin 31.5 pg (28.0-33.3); Mean Corpuscular Volume 107.7 fL (83.0-100.0); Mean Platelet Volume 11.3 fL (9.4-12.4); Platelet Count 161 K/mcL (140-400); Red Cell Distribution Width 18.8 % (11.5-14.5); White Blood Count 7.9 K/mcL (4.3-11.1)
[2021-02-07 08:38] LABS: Calcium 9.6 mg/dL (8.6-10.3); Magnesium 2.6 mg/dL (1.6-2.6); Phosphorous 4.4 mg/dL (2.7-4.5); Potassium 3.6 mEq/L (3.5-5.1)
[2021-02-07] MEDS: *HR* LORazepam 1 MG TABLET PO PRN ×2 (09:00→16:47)
[2021-02-07] MEDS: Pregabalin 25 MG CAPSULE PO SCH ×2 (09:00→21:10)
[2021-02-07] MEDS ORDERED: levoFLOXacin 750 MG TABLET PO SCH (09:00)
[2021-02-07] MEDS: Folic Acid 1 MG TABLET PO SCH (09:00)
[2021-02-07] MEDS: DilTIAZem CD (24hr) 240 MG CAP.ER.24H PO SCH (09:00)
[2021-02-07] MEDS: Apixaban 2.5 MG TABLET PO SCH ×2 (09:00→21:10)
[2021-02-07] MEDS ORDERED: Furosemide 40 MG/4 ML VIAL IVP SCH (09:00)
[2021-02-07] MEDS: Spironolactone 25 MG TABLET PO SCH (09:01)
[2021-02-07] MEDS: *HR* Digoxin 0.125 MG TABLET PO SCH (12:25)
[2021-02-07] MEDS: Multivit/Ca/Min/Fe/FA 1 TAB TABLET PO SCH (16:47)
[2021-02-07] MEDS: Budesonide Neb 0.5 MG/2 ML IH SCH (19:31)
[2021-02-07] MEDS: Aspirin Enteric Coated 81 MG Tablet PO SCH (21:10)
[2021-02-08] MEDS: Ipratropium/Albuterol Neb 3 ML IH SCH ×4 (00:33→11:09)
[2021-02-08 02:05] LABS: Basophils % 0.1 %; Hematocrit 28.8 % (37.5-50.1); Hemoglobin 8.4 g/dL (12.9-16.9); Immature Granulocytes % 0.6 % (0-4); Lymphocytes # 0.2 K/mcL (0.6-4.6); Lymphocytes % 2.7 %; Mean Corpuscular HGB Conc 29.2 g/dL (31.6-35.5); Mean Corpuscular Hemoglobin 32.1 pg (28.0-33.3); Mean Corpuscular Volume 109.9 fL (83.0-100.0); Mean Platelet Volume 10.7 fL (9.4-12.4); Monocytes # 0.4 K/mcL (0.0-1.3); Monocytes % 5.2 %; Neutrophils # 7.2 K/mcL (1.6-8.9); Platelet Count 165 K/mcL (140-400); Red Blood Count 2.62 M/mcL (4.19-5.50); Red Cell Distribution Width 18.6 % (11.5-14.5); Segmented Neutrophils % 91.4 %; White Blood Count 7.9 K/mcL (4.3-11.1)
[2021-02-08 02:22] LABS: Calcium 9.4 mg/dL (8.6-10.3); Magnesium 2.6 mg/dL (1.6-2.6); Potassium 3.3 mEq/L (3.5-5.1)
[2021-02-08] MEDS: Budesonide Neb 0.5 MG/2 ML IH SCH (07:32)
[2021-02-08 07:42] VITALS: BP 168/80
[2021-02-08] MEDS: Folic Acid 1 MG TABLET PO SCH (08:15)
[2021-02-08] MEDS: *HR* LORazepam 1 MG TABLET PO PRN (08:15)
[2021-02-08] MEDS: Pregabalin 25 MG CAPSULE PO SCH (08:15)
[2021-02-08] MEDS: Spironolactone 25 MG TABLET PO SCH (08:15)
[2021-02-08] MEDS: *HR* Digoxin 0.125 MG TABLET PO SCH (08:15)
[2021-02-08] MEDS: Apixaban 2.5 MG TABLET PO SCH (08:15)
[2021-02-08] MEDS ORDERED: Metoprolol XL (24 HR) Succ 50 MG TAB.ER.24H PO SCH (09:00)
[2021-02-08] MEDS ORDERED: predniSONE 20 MG TABLET PO SCH (09:00)
[2021-02-08] MEDS: *HR* OxyCODONE Immed Rel 5 MG TABLET PO PRN (11:47)
== END 2021-02-08 13:15 | disposition hospice, home (50) | DRG 291 ==
LOC: 2ANU → SUATTDRO 18:17
PROVIDERS: ADMIT General Practice; ATTEND Pharmacist